=== PATIENT | female | born 1940 | race Caucasian/White ===

== ENCOUNTER 2022-12-31 13:02 | Emergency (ER) | payer OTHER ==
[~2022-12-31] VITALS: Ht 152.4 cm; Wt 98.9 kg
[~2022-12-31 13:02] MED LIST: XARELTO 10MG PO
[2022-12-31] MEDS ORDERED: CLARITIN10 M1 PO (13:39)
[2022-12-31] MEDS ORDERED: AZITHROMYCIN250 MG PO (13:40)
[2022-12-31] MEDS ORDERED: [UNRECOGNIZED DRUG - OTHER] (13:41)
== END 2022-12-31 18:21 | disposition home or self-care (01) ==
LOC: ER 13:02
DX: J22 Unspecified acute lower respiratory infection (principal); R05.9 Cough, unspecified; R53.81 Other malaise; I10 Essential (primary) hypertension; G44.89 Other headache syndrome

== ENCOUNTER 2023-01-30 11:21 | Outpatient (CLI) | payer OTHER ==
[~2023-01-30 11:21] MED LIST changes: +AZITHROMYCIN250 MG PO; +CLARITIN10 M1 PO; +[UNRECOGNIZED DRUG - OTHER]
== END 2023-01-30 11:24 | disposition home or self-care (01) ==
LOC: RAD 11:21
PROVIDERS: ATTEND Orthopaedic Surgery
DX: M25.572 Pain in left ankle and joints of left foot (principal)

== ENCOUNTER 2023-03-22 11:21 | Outpatient (CLI) | payer OTHER | END 2023-03-22 11:30 | disposition home or self-care (01) | LOC: TOM 11:21 | PROVIDERS: ATTEND Orthopaedic Surgery | DX: M79.672 Pain in left foot (principal); M19.072 Primary osteoarthritis, left ankle and foot ==

== ENCOUNTER 2023-03-27 13:48 | Outpatient (CLI) | payer OTHER | END 2023-03-27 13:57 | disposition home or self-care (01) | LOC: NUCLEAR 13:48 | PROVIDERS: ATTEND Orthopaedic Surgery | DX: M81.0 Age-related osteoporosis without current pathological fracture (principal) ==